=== PATIENT | male | born 1985 | race Caucasian/White ===

== ENCOUNTER 2017-06-23 11:38 | Emergency (ER) | payer OTHER ==
[2017-06-23 12:13] LABS: PLATELET COUNT 275 10^3/uL (150-400)
--- NOTE | 2017-06-23 15:04 | EDPHY ---
H & P Stated Complaint: Suicidal - Personal History Current Tetanus/Diphtheria Vaccine: Yes Current Tetanus Diphtheria and Acellular Pertussis (TDAP): Yes - Medical/Surgical History Hx Asthma: No Hx Chronic Respiratory Disease: No Hx Diabetes: Yes Hx Cardiac Disease: No Hx Renal Disease: No Hx Cirrhosis: No Hx Alcoholism: No Hx HIV/AIDS: No Hx Splenectomy or Spleen Trauma: No Other PMH: SVT, DIABTETES, HTN, HYPERLIPIDEMIA - Social History Smoking Status: Heavy smoker HPI/ROS: Chief complaint: Suicidal ideation, on mental health hold History of present illness: This is a 32-year-old male brought to the emergency department by police for evaluation of suicidal ideation. The police have placed him on a mental health hold. Patient reports a long history of depression. Today he states he started thinking of killing himself. He got a rope to hang himself but it broke. He denies any actual trauma to the neck. No farfan noted to the neck. No neck discomfort. This state he still feels like he wants to kill himself. He denies homicidal ideation. He denies illness or any injuries. He has tried to kill himself in the past. Review of systems: A 10 point review of systems was obtained and other than described above was negative (Jimmy Noriega) - Physical Exam Exam: General Appearance: Alert, nontoxic. Eyes: Pupils equal and round no pallor or injection. ENT, Mouth: Mucous membranes moist. Respiratory: There are no retractions, lungs are clear to auscultation. Cardiovascular: Regular rate and rhythm. Radial pulses 2+. No carotid bruits. Gastrointestinal: Abdomen is soft and non tender, no masses, bowel sounds normal. Neurological: Alert and oriented x4. Strength and sensation intact and symmetrical. Skin: Warm and dry, no rashes. Musculoskeletal: Neck is supple non tender. Extremities are symmetrical, full range of motion. Psychiatric: Cooperative. (Jimmy Noriega) Constitutional: Initial Vital Signs Temperature (C) 36.5 C 06/23/17 11:39 Heart Rate 129 H 06/23/17 11:39 Respiratory Rate 18 06/23/17 11:39 Blood Pressure 121/79 H 06/23/17 11:39 O2 Sat (%) 96 06/23/17 11:39 O2 Delivery Mode Room Air Allergies/Adverse Reactions: bee venom protein (honey bee) Allergy (Verified 06/23/17 11:47) divalproex sodium [From Depakote] Allergy (Verified 06/23/17 11:47) risperidone [From Risperdal] Allergy (Verified 06/23/17 11:47) Home Medications: Medication Instructions Recorded NK [No Known Home Meds] 06/23/17 Medical Decision Making ED Course/Re-evaluation: Patient seen under the supervision of my secondary supervising physician Dr. Rosalva Tanner. Patient presents to the emergency department on a mental health hold. He is medically evaluated, his bicarb was decreased therefore chemistry panel was rechecked and has improved. He is medically cleared for psychiatric evaluation. Care of patient is turned over to my attending physician Dr. Laura Gordillo at end of shift. (Jimmy Noriega) 1700: Patient is signed out to me at change of shift. The patient awaiting evaluation. I noted the patient's anion gap had increased slightly on the laboratory studies. I recommended we repeat his chemistry panel in 1 hr. PA ordered this prior to transfer care. Rechecked patient's chemistry panel. It was stable. His and gap improved slightly. EMTALA was completed. The patient will be transferred. Patient had no complaints. (Laura Gordillo S) The patient was evaluated and managed by the physician car rental sales assistant. I have reviewed this chart and I agree with the findings and plan of care as documented , as indicated by my signature. I am the secondary supervising physician. ( Rosalva Tanner) Differential Diagnosis: Included but not limited to substance abuse, anxiety, depression, bipolar (Jimmy Noriega) - Data Points Laboratory Results: Laboratory Results 06/23/17 12:05 06/23/17 17:37 Departure - Departure Disposition: Other Psych, Not [place] Clinical Impression: Suicidal ideation Condition: Good Referrals: NONE *PRIMARY CARE P,. [Primary Care Provider] - As per Instructions
[2017-06-23 17:18] VITALS: PULSE 80
[2017-06-23 18:55] VITALS: BP 120/62; RESP 18; TEMP 98.2; O2SAT 97
== END 2017-06-23 19:12 ==
DX: R45.851 Suicidal ideations (principal); E11.9 Type 2 diabetes mellitus without complications; I10 Essential (primary) hypertension; F17.200 Nicotine dependence, unspecified, uncomplicated
CPT/HCPCS: 80305; G0480

== ENCOUNTER 2017-08-01 15:36 | Observation (INO) | payer OTHER ==
--- NOTE | 2017-08-01 16:00 | EDPHY ---
H & P - Medical/Surgical History Hx Asthma: No Hx Chronic Respiratory Disease: No Hx Diabetes: Yes Hx Cardiac Disease: No Hx Renal Disease: No Hx Cirrhosis: No Hx Alcoholism: No Hx HIV/AIDS: No Hx Splenectomy or Spleen Trauma: No Other PMH: SVT, DIABTETES, HTN, HYPERLIPIDEMIA - Social History Smoking Status: Heavy smoker Time Seen by Provider: 08/01/17 15:45 HPI/ROS: 2209: Patient signed over to me at 10:00 p.m. shift change. Patient on M1 hold for suicidal ideation. Patient pending inpatient psychiatric hospitalization. (Leodan Blas) CHIEF COMPLAINT: Suicidal ideation, auditory hallucinations, M1 HISTORY OF PRESENT ILLNESS: The patient is a 32 y/o male with major depression who arrives via EMS from the [facility] on an M1 hold for suicidal ideation and auditory hallucinations. He is currently undergoing ECT treatment at [facility] and reports memory loss since starting this. He has been off his medications for 3 days due to insurance issues and has begun to hear voices telling him to hang himself again. He reports the voices return when he is off medications and he uses headphones to try to drown them out. He was here in May after he attempted to hang himself, but the rope broke and he did not suffer any trauma; he has had several other suicide attempts prior to that incident. Today, he has difficulty remembering everything but says, "apparently I was yelling at my mother over the phone at [employer] and was heading home to hang myself." It's unclear who called 911, but he was contacted by PD and transported to the Crisis Center. There he was placed on M1 for suicidal ideation and transferred here. He denies any attempts to hurt himself today. No ingestions. No homicidal ideation. No medical complaints, recent illness, or recent trauma. REVIEW OF SYSTEMS: Constitutional: No fever, no chills Eyes: No visual changes ENT: No sore throat Respiratory: No cough, no shortness of breath Cardiac: No chest pain Gastrointestinal: No nausea, no vomiting, no abdominal pain Genitourinary: No hematuria, no dysuria Musculoskeletal: No leg pain or swelling Skin: No rash Neurological: No headache, no numbness, no weakness Psychiatric: See HPI (Alberta Hamlin) - Medical/Surgical History PMH: PMH includes: 1. Depression with prior suicide attempts - Clozaril 2. SVT 3. Diabetes - controlled with diet, no medications 4. Hypertension 5. Hyperlipidemia Prior medical records reviewed including ED visit 06/23/17 for M1 and suicide attempt. (Alberta Hamlin) - Social History Additional Social History: Smokes tobacco and marijuana. No alcohol or illicit drug use. (Alberta Hamlin) - Physical Exam Exam: General Appearance: Alert, no distress Eyes: Pupils equal and round, no conjunctival pallor or injection ENT, Mouth: Mucous membranes moist Neck: Normal inspection Respiratory: Lungs are clear to auscultation Cardiovascular: Regular rate and rhythm Gastrointestinal: Abdomen is soft and non- tender Neurological: A&O, nonfocal, normal gait Skin: Warm and dry, no rash Extremities: Nontender, no pedal edema Psychiatric: Mood and affect normal (Alberta Hamlin) Constitutional: Initial Vital Signs Temperature (C) 37 C 08/01/17 15:36 Heart Rate 89 08/01/17 15:36 Respiratory Rate 18 08/01/17 15:36 Blood Pressure 156/98 H 08/01/17 15:36 O2 Sat (%) 98 08/01/17 15:36 O2 Delivery Mode Room Air Allergies/Adverse Reactions: bee venom protein (honey bee) Allergy (Verified 06/23/17 11:47) divalproex sodium [From Depakote] Allergy (Verified 06/23/17 11:47) latex Allergy (Verified 08/01/17 15:52) peanut Allergy (Verified 08/01/17 15:52) risperidone [From Risperdal] Allergy (Verified 06/23/17 11:47) Home Medications: Medication Instructions Recorded Eszopiclone [Lunesta] 3 mg PO HS 08/02/17 Omeprazole [Prilosec 20 mg] 20 mg PO DAILY 08/02/17 cloZAPine [Clozaril (*)] 100 mg PO HS 08/02/17 Medical Decision Making ED Course/Re-evaluation: This is a 32 y/o male who presents with suicidal ideation and worsening auditory hallucinations after running out of medication 3 days ago. He planned to hang himself today. No medical complaints. Plan for standard psychiatric labs and then mental health evaluation. Tox screen positive for marijuana only. BGL elevated at 216. Med cleared for MH eval. (Alberta Hamlin) - Data Points Laboratory Results: Laboratory Results 08/01/17 15:50 08/01/17 15:50 Medications Given: Lorazepam (Ativan) 0.5 mg PO Q4 PRN PRN Reason: AGITATION Stop: 01/29/18 00:59 Last Admin: 08/03/17 18:01 Dose: 0.5 mg Nicotine (Nicoderm Cq) 21 mg TD DAILY DL Stop: 01/29/18 09:44 Last Admin: 08/03/17 08:27 Dose: 21 mg Olanzapine (Zyprexa Zydis) 5 mg PO Q4 PRN PRN Reason: PSYCHOSIS Stop: 01/29/18 00:59 Last Admin: 08/03/17 18:01 Dose: 5 mg Pantoprazole Sodium (Protonix) 40 mg PO DAILY DL Stop: 01/30/18 08:59 Last Admin: 08/03/17 08:27 Dose: 40 mg Discontinued Medications Lorazepam (Ativan) 1 mg PO EDNOW ONE Stop: 08/01/17 19:57 Last Admin: 08/01/17 19:59 Dose: 1 mg Lorazepam (Ativan) 1 mg PO Q4 PRN PRN Reason: AGITATION Stop: 01/29/18 00:59 Last Admin: 08/02/17 11:54 Dose: 1 mg Departure - Departure Disposition: [facility] IP Clinical Impression: Suicidal ideation Condition: Fair Report Scribed for: Alberta Hamlin Report Scribed by: Ginny Fairbanks Date of Report: 08/01/17 Time of Report: 16:06 Physician Review and Approval Statement: 08/01/17 16:06 Portions of this note were transcribed by a medical record retrieval specialist. I personally performed a history, physical exam, medical decision making, and confirmed accuracy of information the transcribed note. (Alberta Hamlin)
[2017-08-01 16:10] LABS: PLATELET COUNT 266 10^3/uL (150-400)
[2017-08-01] MEDS ORDERED: LORazepam 1 MG TAB PO ONE (19:56)
[2017-08-02] MEDS ORDERED: MAGNESIUM HYDROXIDE 30 ML UDCUP PO PRN (01:00)
[2017-08-02] MEDS ORDERED: NICOTINE POLACRILEX 2 MG GUM B PRN (01:00)
[2017-08-02] MEDS ORDERED: MAG HYDROX/AL HYDROX/SIMETH 30 ML UDCUP PO PRN (01:00)
[2017-08-02] MEDS ORDERED: ACETAMINOPHEN 325 MG TAB PO PRN (01:00)
[2017-08-02] MEDS: OLANZapine DISINTEGR 5 MG TAB PO PRN ×2 (01:22→11:54)
[2017-08-02] MEDS: LORazepam 1 MG TAB PO PRN ×2 (01:22→11:54)
--- NOTE | 2017-08-02 10:09 | GHP ---
[f rep st] HISTORY AND PHYSICAL DATE OF ADMISSION: 08/02/2017 CHIEF COMPLAINT: Depression and suicidal ideation. HISTORY OF PRESENT ILLNESS: A 32-year-old male with a history of diabetes, hypertension, hyperlipide ceferino and major depression, who presents to the emergency department with acute suicidal ideation. For details of patient's presentation, please see the emergency department report. On the inpatient [facility] hiat[facility] floor, patient is denying any shortness of breath, chest pain, nausea, abdominal discomfort, c hanges in his bowel habits, dysuria, hematuria, swelling, numbness or tingling. PAST MEDICAL HISTORY: 1. Diabetes. 2. Hypertension. 3. Hyperlipidemia. 4. History of SVT. 5. Major depression with suicidal ideation. 6. Tobacco dependence. SOCIAL HISTORY: Patient smokes approximately 3 packs of cigarettes a day. Denies alcohol. Uses mar ijuana. FAMILY HISTORY: Positive for diabetes and also positive for suicides in all 3 of his male siblings. REVIEW OF SYSTEMS: A 10-point review of systems is negative with the exception of that reported in t he HPI. PHYSICAL EXAMINATION: VITAL SIGNS: Blood pressure 134/71, heart rate 97, respiratory rate 16, 93% o n room air, 36.5. GENERAL: This is a healthy-appearing young male lying flat in bed. HEENT: Exam is notable for moist mucous membranes. Eye exam is negative for any icterus. CARDIAC: Patient is regu lar rate and rhythm. PULMONARY: Clear to auscultation bilaterally. GASTROINTESTINAL: Positive bowel s ounds. ABDOMEN: Soft and nontender. MUSCULOSKELETAL: Negative for any lower extremity edema. SKIN: Negative for any rashes. NEUROLOGIC: He is alert and oriented x3. PSYCHIATRIC: He is cooperative on interview and examination. DATA: White count 10.8, hematocrit 46.8, platelets of 266. Creatinine 0.5. Urine drug screen posit ginette for marijuana, negative for alcohol. ASSESSMENT AND PLAN: This is a 32-year-old male admitted for suicidal ideation. 1. Diabetes. Patient reports being diet controlled. His blood glucose is elevated at presentation. Will add a hemoglobin A1c to the labs already drawn and make decisions related to initiation of ora l diabetes treatments. 2. Hypertension. Patient's blood pressures were ranging between the 120s and 150 systolic. First ag ent of choice would be a low-dose ESTEBAN inhibitor. Will follow his blood pressures. Will not initiate at this time but see if the trends run above 140 systolic. 3. Hyperlipidemia. Patient reports no treatment in the outpatient setting. We will defer initiatin g medication at this time. 4. Acute suicidal ideation. Patient is on the inpatient psychiatry floor, being closely managed by psychiatry team. Will defer to their management. I have discussed the case with the RN on Behavioral Health. We will add some labs to those already c ollected and follow along accordingly. /[id number]/MODL
[2017-08-02] MEDS: NICOTINE 21 MG/24 HR PATCH TD SCH (11:51)
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
[2017-08-03] MEDS: LORazepam 1 MG TAB PO PRN ×3 (08:27→18:01)
[2017-08-03] MEDS: PANTOPRAZOLE SODIUM 40 MG TAB PO SCH (08:27)
[2017-08-03] MEDS: OLANZapine DISINTEGR 5 MG TAB PO PRN ×3 (08:27→18:01)
[2017-08-03] MEDS: NICOTINE 21 MG/24 HR PATCH TD SCH (08:27)
[2017-08-03] MEDS ORDERED: NON-FORMULARY NEW DRUG (Omeprazole [Prilosec 20 Mg] 20 MG) PO SCH (09:00)
--- NOTE | 2017-08-03 13:34 | SOAPPROG ---
SOAP Progress Note Assessment/Plan: Assessment: Plan: 08/03/17 13:30 1. Patient reported AH to Brigida SHAY this AM. However, when MD talked to patient he denied any AH. Still claims it's "only my own voice" that he hears in his head. Patient has been using Zyprexa PRN. 2. Patient slept > 11 hrs last night. He woke up for breakfast and went back to bed. He has refused to attend any groups. 3. [facility] expires on 08/04/17 at 1453. Subjective: Met with patient, reviewed chart and d/w staff. Patient woke up this AM, ate breakfast and went back to bed. He told Brigida SHAY, this AM that he felt "better " than he has in several days. He initially denied that he had any AH, but later admitted AH were "bothering" him, however, the continued to tell MD that he only "hears my own voice" in his head. When MD talked to him after he woke up the second time, patient said he felt "fine" and denied any AH. He also denies any SI/HI. Objective: Vital Signs Temp Pulse Resp BP Pulse Ox 36.8 C 88 16 125/70 H 92 08/03/17 06:00 08/03/17 06:00 08/03/17 06:00 08/03/17 06:00 08/03/17 06:00 MSE: Affect: Euthymic Mood: "Fine" TP: Linear TC: Denies SI/HI, states he hears "my own voice" in his head, but denies it is telling him to kill himself today Insight/Judgment: Poor - Time Spent With Patient Time Spent With Patient: 20" - Pending Discharge Pending Discharge Within 24 Hours: No Pending Discharge Within 48 Hours: No ICD10 Worksheet Patient Problems: Problems Problem Status Onset Bipolar disorder, curr episode depressed, severe, w/psychotic features Acute Cannabis use disorder, mild, abuse Acute Diabetes Acute Posttraumatic stress disorder Acute Suicidal ideation Acute
--- NOTE | 2017-08-03 14:44 | HOSPPROG ---
Hospitalist Progress Note Assessment/Plan: # Diabetes - BS 216 at presentation - reports no meds as an outpatient - ordered HBA1c which is pending - would start metformin in > 8 - hold on SSI for now # HTN - BP in 150's at presentation - has stabilized in 120's overnight oxygen saturations 95% on RA - would not start a BP agent at this time # AGMA - suspect 2/2 hypovolemia at presentation- discussed improved fluid intake with patient- creatinine 0.5 # Tobacco abuse - nicotine patch # depression- management per psychiatry I have discussed the case with RN - awaiting labs no med changes today Subjective: denies pain Objective: Vital Signs Temp Pulse Resp BP Pulse Ox 36.8 C 88 16 125/70 H 92 08/03/17 06:00 08/03/17 06:00 08/03/17 06:00 08/03/17 06:00 08/03/17 06:00 - Physical Exam Constitutional: appears nourished Eyes: anicteric sclera Ears, Nose, Mouth, Throat: moist mucous membranes Cardiovascular: regular rate and rhythym Respiratory: no respiratory distress Gastrointestinal: normoactive bowel sounds Genitourinary: no bladder fullness Skin: warm Musculoskeletal: No asymmetric calves Neurologic: AAOx3 Psychiatric: depressed, flat affect Lymph, Heme, Immunologic: no cervical LAD ICD10 Worksheet Patient Problems: Problems Problem Status Onset Diabetes Acute - ICD10 Problem Qualifiers (1) Diabetes
[2017-08-04] MEDS: PANTOPRAZOLE SODIUM 40 MG TAB PO SCH (08:28)
[2017-08-04] MEDS: NICOTINE 21 MG/24 HR PATCH TD SCH (08:28)
[2017-08-04] MEDS ORDERED: hydrOXYzine HCL 25 MG TAB PO PRN (10:54)
[2017-08-04] MEDS ORDERED: GABAPENTIN 300 MG CAP PO PRN (10:55)
--- NOTE | 2017-08-04 11:01 | SOAPPROG ---
SOAP Progress Note Assessment/Plan: Assessment: Bipolar Disorder, I, MRE depressed severe with psychotic features PTSD Cannabis Use Disorder, mild Nicotine Use Disorder, severe Limited supports in [place] Recent suicidal ideation Diabetes GERD History of cholecystectomy, appendectomy, rotator cuff surgery, SVT ALLERGY: Bee stings, Depakote, Risperdal, Nuts, Latex Patient reports sleeping well after taking 5mg Zyprexa last night. Denies further AH or SI. Patient appears to have appropriate insight and judgment regarding treatment planning. Patient was recent inpatient at [facility] for depression and recently received ECT and Clozapine. Patient has a history of multiple past suicide attempts; patient is a combat with 'other than honorable' discharge, not currently eligible for NH services. Plan: Patient agrees to voluntary treatment Discussed dangers of cannabis Discussed low carbohydrate diet, starting Metformin 500mg BID and ASA 81mg for diabetes Protonix for GERD Nicotine patch for nicotine use disorder Discussed risks/benefits of Abilify, Zyprexa, [place] for Bipolar Disorder Schedule Zyprexa 5mg QHS. Discussed risk of weight gain, worsening diabetes, sedation, EPS, NMS, and tardive dyskinesia Vistaril 25mg QHS and 25mg PRN for insomnia, PTSD/anxiety Gabapentin 300mg QHS PRN insomnia Monitor mood stability, judgment, safety planning Patient signed SPENCER to obtain discharge summary from [facility] Patient signed SPENCER for [facility] care coordination if patient does not return to [facility] 08/04/17 11:01 Subjective: CC: "I feel better" Patient reports sleeping well. Reports stable mood this AM. Denies feeling hopeless or helpless or having any thoughts of or suicide. Endorses nightmares and flashbacks, related to childhood trauma and service. Reports past benefit from Vistaril. Reports possible disinhibition with benzodiazepines in the past. Reports depressed mood in the past for weeks at a time with anhedonia and SI alternating with multiple days of agitation, irritability, racing thoughts, and insomnia. Reports rare AH in the past, negative statements. Reports receiving [employer] benefits and [employer] benefits, has $ 4000 saved, and has a goal of moving back to [place] to be near relatives and ex-. Reports in past taking Metformin for diabetes. Reports wanting to continue Zyprexa as alternative to Clozapine despite risk of metabolic syndrome. Reports past side effects with Risperdal, Depakote, and Seroquel. Unwilling to try Abilify or [place] after review of potential side effects. Reports after recent inpatient at [facility] did intake at [facility] but hasn't seen a psychiatrist and has no one to monitor clozapine as an outpatient. Reports on unit feeling calm and denies agitation, irritability, mood swings, or violent or suicidal thoughts today. Objective: Vital Signs Temp Pulse Resp BP Pulse Ox 36.6 C 80 20 118/63 90 L 08/04/17 06:00 08/04/17 06:00 08/04/17 06:00 08/04/17 06:00 08/04/17 06:00 Alert WM, cooperative, calm. Speech RRR. Mood 'better' Affect restricted, briefly irritable. Thoughts organized but limited information. Denies SI or HI or AH. Memory fair. Insight fair. Judgment appropriate. Staff report patient slept 10 hours, calm and appropriate on unit. - Time Spent With Patient Time Spent With Patient: 40 minutes - Pending Discharge Pending Discharge Within 24 Hours: Yes Pending Discharge Date: 08/05/17 Pending Discharge Time: 11:00 ICD10 Worksheet Patient Problems: Problems Problem Status Onset Diabetes Acute Suicidal ideation Acute
[2017-08-04] MEDS: ASPIRIN EC 81 MG TAB PO SCH (11:46)
[2017-08-04] MEDS: OLANZapine DISINTEGR 5 MG TAB PO PRN (11:46)
[2017-08-04] MEDS: metFORMIN HCL 500 MG TAB PO SCH (17:29)
[2017-08-04] MEDS ORDERED: OLANZapine DISINTEGR 5 MG TAB PO SCH (21:00)
[2017-08-04] MEDS ORDERED: hydrOXYzine HCL 25 MG TAB PO SCH (21:00)
[2017-08-05 06:49] VITALS: BP 144/74; PULSE 86; RESP 16; TEMP 97.5; O2SAT 94
[2017-08-05] MEDS: NICOTINE 21 MG/24 HR PATCH TD SCH (08:18)
[2017-08-05] MEDS: PANTOPRAZOLE SODIUM 40 MG TAB PO SCH (08:18)
[2017-08-05] MEDS: metFORMIN HCL 500 MG TAB PO SCH (08:18)
[2017-08-05] MEDS: ASPIRIN EC 81 MG TAB PO SCH (08:18)
--- NOTE | 2017-08-05 10:56 | BDS ---
[f rep st] BEHAVIORAL HEALTH DISCHARGE SUMMARY DATE OF DISCHARGE: 08/05/17 ADMITTING DIAGNOSES: See initial psychiatric evaluation by Dr. Ovalles dated August 02, 2017. The patient's initial admission diagnoses were: 1. Suicidal ideation. 2. Major depressive disorder, recurrent, severe, without psychotic features. 3. Cannabis use disorder, severe, rule out cannabis-related mood disorder. IDENTIFICATION: This is a 32-year-old white male who lives with roommates. He receives Social Security Disability and [employer] benefits. 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 The patient has a prior history of severe mental illness and multiple past psychiatric hospitalizations. BRIEF PSYCHIATRIC HISTORY: Please see the psychiatric assessment and history from Dr. Ovalles on August 02, 2017. Briefly, the patient has a history of multiple suicide attempts, including history of hanging and overdoses. The patient has had multiple psychiatric hospitalizations for symptoms of bipolar disorder with psychotic features and posttraumatic stress disorder. The patient has been on numerous mood stabilizer, antidepressant, antipsychotic, and anxiolytic medications in the past. The patient was recently in [facility] in June 2017 for depression with psychotic features, received electroconvulsive therapy and was started on Clozaril. After the hospitalization, the patient was unable to fill his Clozaril prescription and decompensated. BRIEF MEDICAL HISTORY: The patient is overweight with a history of diabetes. He also has gastroesophageal reflux disease, a history of a cholecystectomy, appendectomy, rotator cuff surgery, and past supraventricular tachycardia. ALLERGIES: The patient is allergic to bee stings. He has a history of adverse reactions to Depakote and Risperdal. He also has allergies to nuts and latex. REASON FOR ADMISSION: Please review the psychiatric evaluation by Dr. Ovalles from August 02, 2017. Briefly, the patient had been discharged from [facility] after he had been treated for depression with psychotic features with electroconvulsive therapy and Clozaril. The patient was unable to fill his Clozaril prescription after discharge. He had severe insomnia, agitation, anxiety, mood swings, auditory hallucinations telling him to kill himself, and brief suicidal thoughts to kill himself. He apparently was agitated speaking to his mother on the phone while in public and reporting suicidal thoughts, and the police picked him up, took him to a crisis unit, and then he was admitted to the inpatient unit on an M1 hold. INITIAL EXAM: The patient was overweight, agitated, having auditory hallucinations, suicidal ideation. He was ambulatory without tremors or weakness, with poor insight. HOSPITAL COURSE: The patient was observed on the inpatient unit. There was concern that he had cannabis-related symptoms due to recent cannabis use contributing to paranoia and hallucinations. The patient reported anxiety, posttraumatic stress disorder symptoms, nihilistic or negative auditory hallucinations telling him to harm himself, depressed mood, anxiety, and insomnia. The patient had marked improvement was Zyprexa as a mood stabilizer and antipsychotic. He had improvements in sleep, remission of his auditory hallucinations, remission of his suicidal ideation. He was also started on hydroxyzine p.r.n. for anxiety and posttraumatic stress disorder symptoms. The patient was found to have recurrent diabetes, was restarted on metformin and aspirin for this. On the unit, the patient was calm, appropriate, able to attend groups, eating well, sleeping well, and was able to complete a safety plan regarding managing self-destructive thoughts of discharge. The patient reported having approximately 4000 dollars in savings, as well as Social Security Disability income and 's benefit income to provide support after discharge. He reported he was living in a house that he was renting a room in the [facility] and was interested in outpatient followup at [facility]. The patient did report that he wants to return to [facility] to be near several friends including his ex- and his mother. The patient on the unit did not display any violent or self-injurious behavior. He did not require restraints or seclusion. He was calm, pleasant, cooperative with medications and reported marked improvement in his mood, remission of his suicidal thoughts, and remission of his auditory hallucinations. He was able to name coping skills to use if having suicidal thoughts and was able to name numerous supports to contact if he was having worsening symptoms. The patient was counseled about the risks of Zyprexa causing metabolic syndrome or worsening his diabetes. The patient reported side effects from numerous antipsychotics and mood stabilizers in the past and wanted to continue taking olanzapine. The patient was given Protonix for gastroesophageal reflux disease , metformin for diabetes and NicoDerm patch for nicotine dependence, LABS: He had a white blood cell count 10.0, hemoglobin 16.4, platelet count 266. Sodium 144, potassium 4.4, creatinine 0.5, glucose 216, calcium 9.8, hemoglobin A1c 7.6. Urine drug screen was positive for cannabis only. On June 24, 2017, he had a TSH of 2.7, triglycerides 144, HDL 30, LDL 55. There are no labs pending. PROCEDURES: No procedures were done. CONSULTATIONS: The patient was seen by the hospitalist, Dr. An, on August 02, 2017, and August 03, 2017. CONDITION UPON DISCHARGE: He is an alert white male who is somewhat overweight. He is ambulatory, cooperative, pleasant. No focal tremors or weakness. Good eye contact. His affect is euthymic and pleasant. He describes his mood as "pretty good." His thoughts are organized. He denies any thoughts to hurt himself or others. He denies auditory hallucinations or paranoia. He has fair insight and appropriate judgment. DISCHARGE DIAGNOSES: 1. Bipolar disorder type 1, most recent episode depressed, severe, with psychotic features. 2. Posttraumatic stress disorder. 3. Cannabis use disorder, severe. 4. Nicotine use disorder, severe. 5. Diabetes. 6. Gastroesophageal reflux disease. 7. Past history of cholecystectomy, appendectomy, rotator cuff surgery, and supraventricular tachycardia. DISCHARGE MEDICATIONS: Zyprexa 10 mg by mouth at bedtime, hydroxyzine 25 mg p.o. b.i.d. daily p.r.n. for anxiety, metformin 500 mg p.o. b.i.d., aspirin 81 mg by mouth daily. The patient should restart his omeprazole port-vyq-tqgkosa 20 mg by mouth daily. NicoDerm patch 21 mg transdermal topical placed in the morning and removed at bedtime. This is an pdpw-lcm-qkdfyvh medication. Of note, the above prescription medications were listed on the prescription to be filled as a bubble pack to reduce the risk of impulsive overdose. DISPOSITION: The patient is leaving the hospital independently to return to his house where he rents a room. He reports financial support through Social Security Disability and [employer] benefits. He reports a plan to travel back to [facility] to be near his mother and his ex- and several friends. However, he plans to return to [place] after that. FOLLOWUP: The patient has a followup appointment at [facility] for psychiatric followup in late July. He was also referred to [facility] , which [facility] a [facility], for primary medical care for his diabetes and borderline hypertension. The patient was counseled that he would need to have his blood pressure, glucose, and lipids rechecked at a primary care clinic in one month. LEGAL STATUS: The patient was admitted on an M1 hold and then converted to voluntary status while in the hospital. He will be discharged to be receiving outpatient treatment on a voluntary basis after discharge. /[id number]/MODL MTDD
== END 2017-08-05 11:03 | disposition home or self-care (01) ==
LOC: EDUNIT# → BBEH 08-02 00:55
PROVIDERS: ADMIT Psychiatry & Neurology Psychiatry
DX: F31.5 Bipolar disorder, current episode depressed, severe, with psychotic features (principal); R45.851 Suicidal ideations; F12.10 Cannabis abuse, uncomplicated; F43.10 Post-traumatic stress disorder, unspecified; F41.9 Anxiety disorder, unspecified; I10 Essential (primary) hypertension; E11.9 Type 2 diabetes mellitus without complications; E66.9 Obesity, unspecified; Z68.27 Body mass index [BMI] 27.0-27.9, adult; K21.9 Gastro-esophageal reflux disease without esophagitis; F17.210 Nicotine dependence, cigarettes, uncomplicated; E78.5 Hyperlipidemia, unspecified; Z91.14 Patient's other noncompliance with medication regimen; Z63.8 Other specified problems related to primary support group; Z91.5 Personal history of self-harm
CPT/HCPCS: 80305; G0480

== ENCOUNTER 2017-09-01 17:40 | Emergency (ER) | payer OTHER ==
--- NOTE | 2017-09-01 18:00 | EDPHY ---
H & P Stated Complaint: Brought by [facility] on M1;off all meds;recent d/c from [facility] - Personal History Current Tetanus Diphtheria and Acellular Pertussis (TDAP): Yes - Medical/Surgical History Hx Asthma: No Hx Chronic Respiratory Disease: No Hx Diabetes: Yes Hx Cardiac Disease: No Hx Renal Disease: No Hx Cirrhosis: No Hx Alcoholism: No Hx HIV/AIDS: No Hx Splenectomy or Spleen Trauma: No Other PMH: SVT, DIABTETES, HTN, HYPERLIPIDEMIA, PSYCH - Social History Smoking Status: Heavy smoker Time Seen by Provider: 09/01/17 17:57 HPI/ROS: CHIEF COMPLAINT: M1 suicidal ideation HISTORY OF PRESENT ILLNESS: 32-year-old male history of depression, history of suicidal ideation recently discharged from [facility] 4 days ago arrives via police on an M1 hold complaining of suicidal ideation with plan to jump in front of traffic in order to kill himself. Denies self-injury. Denies acute alcohol use. No complaints of physical pain. PRIMARY CARE PROVIDER: REVIEW OF SYSTEMS: A ten point review of systems was performed and is negative with the exception of the items mentioned in the HPI PAST MEDICAL & SURGICAL HISTORY: Prior suicidal ideation history and depression history SOCIAL HISTORY:Positive for cannabis PHYSICAL EXAM (Prior to examination, patient consented to physical exam, hands were washed and my usual and customary physical exam procedures followed) 1) GENERAL: Well-developed, well-nourished, alert and oriented. Depressed, flat affect 2) HEAD: Normocephalic, atraumatic 3) HEENT: Pupils equal, round, reactive to light bilaterally. Sclera anicteric. 4) NECK: Full range of motion, no meningeal signs. 5) LUNGS: Clear auscultation bilaterally, no wheezes, no rhonchi, no retractions. 6) HEART: Regular rate and rhythm, no murmur, no heave, no gallop. 7) ABDOMEN: No guarding, no rebound, no focal tenderness, negative McBurney's, negative Sherwood's, negative Rovsing's, negative peritoneal sign, 8) MUSCULOSKELETAL: Moving all extremities, no focal areas of tenderness, no obvious trauma. No peripheral edema or discoloration. 9) BACK: No CVA tenderness, no midline vertebral tenderness, no fluctuance, no step-off, no obvious trauma, no visual or palpable abnormality. 10) SKIN: No rash, no petechiae. 11) Psychiatric: Patient is oriented X 3, there is no agitation. Depressed, flat affect, tearful DIFFERENTIAL DIAGNOSIS: Be in no particular order including but not limited to depression, suicidal ideation, homicidal ideation (Estephania Foley Lilia) Constitutional: Initial Vital Signs Temperature (C) 36.7 C 09/01/17 17:48 Heart Rate 78 09/01/17 17:48 Respiratory Rate 18 09/01/17 17:48 Blood Pressure 145/86 H 09/01/17 17:48 O2 Sat (%) 95 09/01/17 17:48 O2 Delivery Mode Room Air Allergies/Adverse Reactions: bee venom protein (honey bee) Allergy (Verified 09/01/17 17:45) divalproex sodium [From Depakote] Allergy (Verified 09/01/17 17:45) latex Allergy (Verified 09/01/17 17:45) peanut Allergy (Verified 09/01/17 17:45) risperidone [From Risperdal] Allergy (Verified 09/01/17 17:45) Home Medications: Medication Instructions Recorded NK [No Known Home Meds] 09/01/17 Medical Decision Making Procedures: 0713: Patient has been seen evaluated by mental health. Dr. Hopson psychiatry as been consult. They would like to lift his M1 hold. They do not feel he needs inpatient psychiatric placement. The patient is calm and cooperative. Patient answers my questions appropriately duodenum somebody else. He is not suicidal. Contracts for safety. He has been given extensive resources for [facility] as well as outpatient psychiatric resources. (Leodan Blas) ED Course/Re-evaluation: 5:59 p.m.: Care of patient under supervision of secondary supervising physician Dr Diane Cooney. I reviewed the old medical records. He is on M1 hold. Will obtain diagnostic studies and consult this mental health animal skinner. He is currently calm and cooperative. Midnight: Care turned over to Dr. Leodan Blas. Awaiting mental health evaluation completion. (Estephania Foley Lilia) 0637: Patient due to be re-evaluated this morning. No events overnight. 0713: Patient has been seen evaluated by mental health. Dr. Reyburn psychiatry as been consult. They would like to lift his M1 hold. They do not feel he needs inpatient psychiatric placement. The patient is calm and cooperative. Patient answers my questions appropriately does not want hurt herself or anybody else somebody else. He is not suicidal. Contracts for safety. He has been given extensive resources for [facility] as well as outpatient psychiatric resources. (Leodan Blas) Other Provider: The patient was evaluated and managed by the Physician Decision Science Analyst. My co- signature indicates that I have reviewed this chart and I agree with the findings and plan of care as documented. I am the secondary supervising physician. (Diane Cooney) The patient's mental health was vacated and he was discharged by Dr. Leodan Blas. I was not involved in the patient's care. (Dontrell Colmenares) - Data Points Laboratory Results: Laboratory Results 09/01/17 18:35 09/01/17 18:35 09/01/17 18:35 Urine Opiates Screen NEGATIVE (NEGATIVE) Urine Barbiturates NEGATIVE (NEGATIVE) Ur Phencyclidine Scrn NEGATIVE (NEGATIVE) Ur Amphetamine Screen NEGATIVE (NEGATIVE) U Benzodiazepines Scrn NEGATIVE (NEGATIVE) Urine Cocaine Screen NEGATIVE (NEGATIVE) U Marijuana (THC) Screen NON-NEGATIVE H (NEGATIVE) Medications Given: Discontinued Medications Nicotine (Nicoderm Cq) 21 mg TD EDNOW ONE Stop: 09/01/17 18:53 Last Admin: 09/01/17 19:31 Dose: 21 mg Departure - Departure Disposition: Home, Routine, Self-Care Clinical Impression: Severe major depression, Suicidal ideation, Cannabis use disorder, mild, abuse Condition: Fair Instructions: Depression (ED) Additional Instructions: Return emergency room if any further thoughts of wanting to hurt herself or somebody else. Please follow up with resources were given today. Referrals: NONE *PRIMARY CARE P,. [Primary Care Provider] - As per Instructions
[2017-09-01 18:48] LABS: PLATELET COUNT 197 10^3/uL (150-400)
[2017-09-01] MEDS ORDERED: NICOTINE 21 MG/24 HR PATCH TD ONE (18:52)
[2017-09-02 00:57] VITALS: PULSE 90; RESP 16; O2SAT 92
[2017-09-02 08:30] VITALS: BP 150/85; TEMP 96.8
== END 2017-09-02 08:29 | disposition home or self-care (01) ==
PROC: GZ11ZZZ Psychological Tests, Personality and Behavioral (ICD-10-PCS; principal; 2017-09-01)
DX: R45.851 Suicidal ideations (principal); F33.3 Major depressive disorder, recurrent, severe with psychotic symptoms; F12.10 Cannabis abuse, uncomplicated; I10 Essential (primary) hypertension; E11.9 Type 2 diabetes mellitus without complications; F17.200 Nicotine dependence, unspecified, uncomplicated; Z91.010 Allergy to peanuts; Z91.040 Latex allergy status
CPT/HCPCS: 80305; G0480